=== PATIENT | female | born 1990 | race Caucasian/White ===

== ENCOUNTER 2016-08-08 10:15 | Emergency (ER) | payer OTHER ==
[~2016-08-08] VITALS: Wt 100.0 kg
[~2016-08-08 10:15] MED LIST: ALBU8.5H3 INH; CETI5SOL PO; D-ME473S2 PO; IBUP100O10 PO; INSU100V19; [UNRECOGNIZED DRUG - OTHER]
[2016-08-08 12:09] LABS: URINE BLOOD (Dip) POC 3+ (NEGATIVE)
--- NOTE | 2016-08-08 12:44 | RADRPT ---
PROCEDURE: US OB. CLINICAL INDICATION: Vaginal bleeding. TECHNIQUE: Transabdominal and transvaginal imaging of the uterus was performed. COMPARISON: None. FINDINGS: There is a intrauterine gestational sac identified in the lower uterine segment/cervix with visualiz ation of 2 yolk sacs and a pole measuring approximately 3 mm corresponding to gestational age of 6 weeks 0 days. There is no cardiac activity. No myoma or adnexal mass. IMPRESSION: Intrauterine gestational sac containing a pole with a size corresponding to a gestational age of 6 weeks 0 days. There is no cardiac activity, which may be on the basis of early dates. However , there is abnormal position of the intrauterine gestational sac, concerning for an in prog ress. Recommend short-term interval sonographic follow-up. RPTAT: EE .Valentín Correa MD, Date Time Electronically viewed and signed by .Valentín Correa MD, on 08/08/2016 12:48 .C/
[2016-08-08 13:13] LABS: BASOPHILS % 0.6 % (0.0-2.0); EOSINOPHILS % 0.4 % (0.0-7.0); HEMATOCRIT 37.7 % (37.0-47.0); HEMOGLOBIN 13.1 g/dl (12.0-16.0); LYMPHOCYTES # 1.9 10^3/ul (0.8-2.9); LYMPHOCYTES % 23.8 % (15.0-51.0); MEAN CORPUSCULAR HEMOGLOBIN 32.7 pg (29.0-33.0); MEAN CORPUSCULAR HGB CONC 34.8 g/dl (32.0-37.0); MEAN PLATELET VOLUME 8.8 fl (7.4-10.4); MONOCYTE # 0.6 10^3/ul (0.3-0.9); MONOCYTES % 7.7 % (0.0-11.0); NEUTROPHIL # 5.3 10^3/ul (1.6-7.5); NEUTROPHILS % 67.5 % (39.0-77.0); PLATELET COUNT 233 10^3/UL (140-440); RED BLOOD COUNT 4.01 10^6/ul (4.20-5.40); UNCORRECTED WBC 7.8 10^3/ul (4.8-10.8); WHITE BLOOD COUNT 7.8 10^3/ul (4.8-10.8)
[2016-08-08] MEDS ORDERED: HYDROCODONE/APAP (5/325) TAB PO ONE (13:30)
[2016-08-08 13:33] LABS: CONDITION 1
[2016-08-08] MEDS ORDERED: ACET500C5 PO (14:17)
--- NOTE | 2016-08-08 14:21 | ERD ---
ER Documentation Chief Complaint Date/Time DATE: 08/08/16 TIME: 14:18 Chief Complaint VAG BLEED. UNKNOWN . ONSET LAST NIGHT. NO N/V. MILD ABD PAIN HPI Summary 5-year-old female presents with some vaginal bleeding last night. She has significant amount of bleeding initially but less now. She has some crampy suprapubic abdominal pain. History is significant for last menstrual. Approximate 10 weeks ago. Her doctor is following test but there are negative up to one month ago. ROS All systems reviewed and are negative except as per history of present illness. Medications Home Meds Active Scripts Acetaminophen* (Tylophen*) 500 Mg Capsule, 1 CAP PO Q6H Y for PAIN AND OR ELEVATED TEMP, #18 CAP Prov:ALBERTO RICHARD MD 08/08/16 Ibuprofen (Ibuprofen) 100 Mg/5 Ml Oral.susp, 20 ML PO Q6H Y for PAIN AND OR ELEVATED TEMP, #4 OZ Prov:LUANA SNEED NP 06/02/16 Cetirizine Hcl* (Cetirizine Hcl*) 5 Mg/5 Ml Solution, 10 ML PO DAILY, #4 OZ Prov:LUANA SNEED NP 06/02/16 Dextromethorphan Hb-Promethazine Hcl* (Promethazine DM* Syrup) 473 Ml Syrup, 5 ML PO Q6 Y for COUGH, #120 ML Prov:LUANA SNEED NP 06/02/16 Albuterol Sulfate* (Proair HFA*) 8.5 Gm Hfa.aer.ad, 2 PUFF INH Q4H Y for WHEEZING AND SOB, #1 INHALER Prov:LUANA SNEED NP 06/02/16 Reported Medications [Humalog Per Ss] 100 U/ML CARTRIDGE No Conflict Check 12/17/09 Insulin Glargine,Hum.rec.anlog (Lantus) 100 U/Ml Vial 12/17/09 Allergies Allergies: Coded Allergies: No Known Drug Allergies (Verified Allergy, Mild, 11/26/10) PMhx/Soc History of Surgery: No Anesthesia Reaction: No Hx Neurological Disorder: No Hx Respiratory Disorders: No Hx Cardiac Disorders: No Hx Psychiatric Problems: No Hx Miscellaneous Medical Probl: Yes (type 1 diabetes) Hx Alcohol Use: No Hx Substance Use: No Hx Tobacco Use: No Physical Exam Vitals Vital Signs Date Time Temp Pulse Resp B/P Pulse Ox O2 Delivery O2 Flow Rate FiO2 08/08/16 10:27 98.3 89 20 150/84 99 Physical Exam Const: [] Head: Atraumatic Eyes: Normal Conjunctiva ENT: Normal External Ears, Nose and Mouth. Neck: Full range of motion..~ No meningismus. Resp: Clear to auscultation bilaterally Cardio: Regular rate and rhythm, no murmurs Abd: Soft, non tender, non distended. Normal bowel sounds Skin: No petechiae or rashes Back: No midline or flank tenderness Ext: No cyanosis, or edema Neur: Awake and alert Psych: Normal Mood and Affect Result Diagram: 08/08/16 1300 Results 24 hrs Laboratory Tests Test 08/08/16 12:09 08/08/16 13:00 Bedside Urine Blood 3+ Bedside Urine Glucose (UA) 0.50% Bedside Urine Ketones (LAB) 1+ Bedside Urine Leukocyte Esterase (L Negative Bedside Urine Nitrite (LAB) Negative Bedside Urine Protein (LAB) Trace Bedside Urine pH (LAB) 5.5 Basophils # 0.010^3/ul Basophils % 0.6% Beta HCG, Quantitative 1296.2mIU/ml Eosinophils # 0.010^3/ul Eosinophils % 0.4% Hematocrit 37.7% Hemoglobin 13.1g/dl Lymphocytes # 1.910^3/ul Lymphocytes % 23.8% Mean Corpuscular Hemoglobin 32.7pg Mean Corpuscular Hemoglobin Concent 34.8g/dl Mean Corpuscular Volume 94.0fl Mean Platelet Volume 8.8fl Monocytes # 0.610^3/ul Monocytes % 7.7% Neutrophils # 5.310^3/ul Neutrophils % 67.5% Nucleated Red Blood Cells # 0.010^3/ul Nucleated Red Blood Cells % 0.0/100WBC Platelet Count 05265^3/UL Red Blood Count 4.0110^6/ul Red Cell Distribution Width 13.0% White Blood Count 7.810^3/ul Current Medications Medications (Trade) Dose Ordered Sig/Eloy Route PRN Reason Start Time Stop Time Status Last Admin Dose Admin Acetaminophen/ Hydrocodone Bitart ([place] (5/325)) 1 tab ONCE ONCE PO 1/28/17 13:30 08/08/16 13:31 DC 08/08/16 13:35 Procedures/MDM Urine is positive. Quantitative hCG 1296. Patient is Rh+. Urine shows slight positive glucose but no leukocytes, nitrites. No ketones. CBC shows no acute abnormalities. Pelvic ultrasound shows approximate 6 week gestational sac and pole but no heart beat and position is abnormal. Findings are suggestive of a miscarriage in progress. Patient is having some crampy abdominal pain during the ED course given [place] 5 mg by mouth. Patient presents with incidental pelvic cramping and bleeding, likely or miscarriage in progress. Findings are currently not suggestive of adnexal , hemorrhaging, DKA, acute abdomen. Patient will be discharged home with instructions for Tylenol instructions for recheck in: Level in 2 days and possibly ultrasound. Patient should return sooner for worsening bleeding, fevers or worsening symptoms. Departure Diagnosis: Primary Impression: Vaginal bleeding before 22 weeks gestation Condition: Stable Patient Instructions: Miscarriage (Incomplete), Possible Miscarriage ( Threatened ) Additional Instructions: test is positive today. Ultrasound shows but unable to visualize heartbeat or complete . May be miscarriage in progress. Recommend repeat laboratory work and ultrasound in 48 hours. Return sooner for fevers, worsening pain, new or worsening symptoms. ALBERTO RICHARD MD Aug 08, 2016 14:21
== END 2016-08-08 14:27 | disposition home or self-care (01) ==
LOC: FTE 10:15
DX: N93.9 Abnormal uterine and vaginal bleeding, unspecified (principal); E10.9 Type 1 diabetes mellitus without complications; R10.2 Pelvic and perineal pain; Z79.4 Long term (current) use of insulin; Z33.1 Pregnant state, incidental
CPT/HCPCS: 76801; 76817; 81003; 84702; 85025; 86900; 86901

== ENCOUNTER 2017-04-21 00:03 | Emergency (ER) | payer SELFPAY ==
[~2017-04-21] VITALS: Ht 167.6 cm; Wt 111.0 kg
[~2017-04-21 00:03] MED LIST changes: +ACET500C5 PO
[2017-04-21 00:06] VITALS: Ht 167.6 cm; Wt 111.0 kg
== END 2017-04-21 02:56 | disposition left against medical advice (07) ==
LOC: FTE 00:03
DX: Z53.21 Procedure and treatment not carried out due to patient leaving prior to being seen by health care provider (principal)